=== PATIENT | female | born 1945 | race Caucasian/White ===

== ENCOUNTER 2019-04-24 11:54 | Day surgery (SDC) | payer OTHER ==
[~2019-04-24] VITALS: Ht 162.6 cm; Wt 66.7 kg
[~2019-04-24 11:54] MED LIST: ADVIL200 M3 PO; ALENDRONATE SOD70 MG PO; AMOXICILLIN875 MG PO; CALCIUM500 MG PO; MULTI VITAMIN1 EACH PO; TRAZODONE HCL100 MG PO; TYLENOL ARTHRI650 MG PO; VITAMIN D31250 MC1 PO
[2019-04-24 12:41] VITALS: BP 135/64
[2019-04-24] MEDS ORDERED: PERCOCET 7.5-31 EAC1 PO (16:08)
[2019-04-24 16:20] VITALS: BP 135/64
--- NOTE | 2019-04-29 08:55 | O ---
[facility] [place] [address] OPERATIVE REPORT Name: LORRAINE MORROW Room #: DEP [facility]#: [id number] Admission: 04/24/19 Attend Phys: Abel Gandhi MD Discharge: Date of : 45 Report #: [id number] THIS REPORT FOR: //name// CC: Faraz Gandhi DATE OF SERVICE: 04/24/2019 PREOPERATIVE DIAGNOSES: 1. Right hallux valgus. 2. Right second hammer toe deformity. POSTOPERATIVE DIAGNOSES: 1. Right hallux valgus. 2. Right second hammer toe deformity. PROCEDURE: 1. Right first tarsometatarsal joint arthrodesis with Lapiplasty. 2. Right foot modified Ho procedure. 3. Right foot second toe proximal interphalangeal joint arthrodesis. 4. Right foot second metatarsophalangeal joint dorsal capsulotomy and tenotomy. SURGEON: Dr. Abel Gandhi. RIM BUSTER: None. ANESTHESIA: General. ESTIMATED BLOOD LOSS: Minimal. DRAINS: None. TOURNIQUET TIME: One hour and 45 minutes. DESCRIPTION OF PROCEDURE: The patient brought to the operating room where she was placed under general anesthesia. Once under adequate general anesthesia, her right lower extremity was prepped and draped in sterile manner. The extremity was elevated, exsanguinated, tourniquet placed 300 mmHg. A dorsal incision over the extensor hallucis longus tendon was made just medial to this. This was done over the first TMT joint approximately 6 cm in length. Dissection was carried down to the first TMT joint, which was then subsequently completely released utilizing a 15 blade, an osteotome and a sagittal saw. Once complete, the rotational pin was placed medially and subsequently it was noted that there would need to be released distally. Therefore, a dorsal incision in the first webspace was made. This was dissected down through the soft tissue to the abductor hallucis tendon, which was then incised and released from the [facility] [address] [place] [address] OPERATIVE REPORT Name: CRISTHIANLORRAINE Room #: DEP [facility]..#: [id number] Admission: 04/24/19 Attend Phys: Abel Gandhi MD Discharge: Date of : 45 Report #: [id number] sesamoid. The sesamoid complex was released from the proximal phalanx with a [place] blade and the joint was fenestrated completing the modified Ho procedure. A small incision was then made just distal to where the dorsal plate was to be placed over the second metatarsal. The C-clamp was then placed and rotation and fixation across the C-clamp was then achieved utilizing fluoroscopy for guidance. Excellent alignment was achieved of the metatarsal decrease in the intermetatarsal angle. A dorsal plate was then placed and a sagittal saw was then used to perform the osteotomy cuts for the Lapidus procedure. The extra pieces of bone were then resected utilizing a rongeur. The wound was irrigated copiously and the subchondral bone was then fenestrated multiple times with a drill to allow bone graft. Compression was then placed across the joint with fixation then achieved with a compression screw and the dorsal and medial plates provided with a Lapiplasty set. Excellent fixation and alignment was achieved as verified under fluoroscopy. A separate medial incision over the metatarsal head was then made with a 15 blade approximately 2 cm in length. Exposure of the joint capsule was achieved, which was then incised and the medial eminence was then resected from the metatarsal head utilizing a sagittal saw. The joint capsule was then repaired with 2-0 Vicryl in a running stitch manner. Excellent repair and alignment of the toe and metatarsal was achieved in this manner. A dorsal incision at the second proximal interphalangeal joint was then made dissecting down to the bone and exposure of the proximal phalangeal head was achieved with a [place] blade. A sagittal saw was then used to transect the proximal phalangeal neck and the head of the proximal phalanx was removed. The base of the middle phalanx was denuded of any cartilage. A drill for the Smart Toe implant with the subsequent broaches was then utilized and a size 19 implant was then placed. Excellent fixation across the proximal interphalangeal joint was achieved. Through the prior first webspace incision then a dorsal capsulotomy and tenotomy at the second metatarsophalangeal joint was made with tenotomy scissors and a [place] blade. Once complete, the wound was then irrigated copiously. Final fluoroscopy images were taken. Excellent fixation and alignment was achieved. The wounds were then irrigated and closed with 2-0 Vicryl in subcutaneous tissues and domo for the skin except at the toe where 3-0 nylon was utilized. The wounds were dressed with Xeroform, 4 x 4s, and sterile soft compressive dressing was placed. Tourniquet was let down at approximately 1 hour and 45 minutes. Toes were pink and warm with good capillary refill. There were no complications from the procedure. The patient tolerated the procedure well and went to the recovery room without incident. <ELECTRONICALLY SIGNED> By: Abel Gandhi MD 04/29/19 [id number] Abel Gandhi MD /nt
== END 2019-04-24 17:50 | disposition home or self-care (01) ==
LOC: CANPRESDC → TBA 11:54 → OR 11:54
DX: M20.11 Hallux valgus (acquired), right foot (principal); M20.41 Other hammer toe(s) (acquired), right foot; M19.90 Unspecified osteoarthritis, unspecified site; Z87.891 Personal history of nicotine dependence; Z98.890 Other specified postprocedural states; Z88.8 Allergy status to other drugs, medicaments and biological substances; Z79.899 Other long term (current) drug therapy
CPT/HCPCS: 50010; 50101; 50386; 50951; 51412; 53364; 55430; 56524; 56527; 57091; 57166; 57180; 62110; 62900; 70005